=== PATIENT | male | born 1955 | race Caucasian/White ===

== ENCOUNTER 2018-09-12 08:26 | Emergency (ER) | payer OTHER, SELFPAY ==
[2018-09-12 08:25] VITALS: BP 155/83; PULSE 76; RESP 20; TEMP 37.1; O2SAT 99
--- NOTE | 2018-09-12 08:36 | DI.RAD.S_ITS ---
PROCEDURE: XR CHEST 2V INDICATIONS: fall left sided pain TECHNIQUE: 2 views of the chest were acquired. COMPARISON: None. FINDINGS: Surgical changes and devices: Right shoulder arthroplasty. Lungs and pleura: Lungs are clear. No pleural effusions or pneumothorax. Mediastinum: Mediastinal contours are normal. Heart size is normal. Bones and chest wall: No suspicious bony abnormalities. Soft tissues appear unremarkable. IMPRESSION: No acute process. Dictated by: Andree Bruno M.D. on 09/12/2018 at 7:57 Approved by: Andree Bruno M.D. on 09/12/2018 at 7:58
--- NOTE | 2018-09-12 08:36 | DI.CT.S_ITS ---
PROCEDURE: CT CERVICAL SPINE WO CON INDICATIONS: fall backwards TECHNIQUE: Noncontrast 3 mm thick sections acquired from the skull base to the T4 level. Sagittal and coronal reformats were then constructed. For radiation dose reduction, the following was used: automated exposure control, adjustment of mA and/or kV according to patient size. COMPARISON: None. FINDINGS: Image quality: Excellent. Bones: No fractures or dislocations. Visualized superior ribs are intact. Multilevel degenerative disc and facet disease. Soft tissues: Prevertebral soft tissues are normal in thickness. No paravertebral hematomas. No apical pneumothoraces. IMPRESSION: Multilevel degenerative disc and facet disease. No acute fracture. No osseous lesion. If symptoms or clinical suspicion for pathology persists, repeat plain films, or advanced imaging (CT, bone scan, or MRI) may be helpful for further assessment. Dictated by: Andree Bruno M.D. on 09/12/2018 at 7:58 Approved by: Andree Bruno M.D. on 09/12/2018 at 8:00
--- NOTE | 2018-09-12 08:48 | ED_ITS ---
HPI - Fall General Chief Complaint: Fall Stated Complaint: GLF,hit head. C/O left shoulder and back pain Time Seen by Provider: 09/12/18 08:35 Source: patient and EMS Mode of arrival: EMS Limitations: no limitations History of Present Illness HPI Narrative: Patient is a 63-year-old male who presents after ground level fall. He was knocked over twice by large [place] presenting part this morning. He says he fell 1st onto his bottom and then laid backwards. Hitting his back and head. No loss of consciousness she is not on any blood thinners. He was able to get up right away not night again. Again no loss of consciousness. He came in with C-collar because he is having some neck pain. He has no numbness or tingling in his arms no weakness. No lower leg extremity weakness. MD complaint: fall Onset (ago): minute(s) Fall from: standing Fall witnessed: yes, by bystander Place fall occurred: other (Part) Loss of consciousness: none Related Data Allergies Allergy/AdvReac Type Severity Reaction Status Date / Time clozapine Allergy Verified 09/12/18 08:42 erythromycin base Allergy Verified 09/12/18 08:42 gabapentin Allergy Verified 09/12/18 08:42 Penicillins Allergy Verified 09/12/18 08:42 pregabalin [From Lyrica] Allergy Verified 09/12/18 08:42 Review of Systems Review of Systems ROS Unobtainable: All systems reviewed & are unremarkable except as noted in HPI and below Constitutional Denies chills, Denies fever(s), Denies lethargy and Denies weakness Eyes Denies change in vision, Denies eye discharge, Denies irritation and Denies loss of vision Cardiovascular Denies syncope Gastrointestinal Gastrointestinal: Denies abdominal pain, Denies change in bowel habits, Denies diarrhea, Denies nausea and Denies vomiting Genitourinary Denies hematuria, Denies flank pain, Denies urinary incontinence and Denies urinary urgency Musculoskeletal Reports as per HPI Integumentary/Breasts Denies pruritus, Denies erythema, Denies rash and Denies wounds Neurologic Denies syncope, Denies loss of vision and Denies weakness Exam Initial Vital Signs Initial Vital Signs: Vital Signs Temperature 98.7 F 09/12/18 08:25 Pulse Rate 76 09/12/18 08:25 Respiratory Rate 20 09/12/18 08:25 Blood Pressure 155/83 H 09/12/18 08:25 Pulse Oximetry 99 09/12/18 08:25 GENERAL: Well-appearing, well-nourished and in no acute distress. HEENT: Head atraumatic no abrasions no crepitations no depression,EOMI, pupils reactive, face symmetric NECK: C-collar placed by EMS. He is actually tender at C7-T1 CARDIOVASCULAR: Regular rate and rhythm without murmurs, rubs or gallops. RESPIRATORY: Breath sounds equal bilaterally, no wheezes rales or rhonchi. ABDOMEN: Soft, nontender. Normoactive bowel sounds all 4 quadrants. No guarding or rebound. EXTREMITIES: Normal range of motion, no clubbing or edema. Neurovascularly intact Able to lift lower legs without any difficulty sensation in lower extremities intact BACK: No vertebral tenderness in lumbar area although he does have some paraspinal tenderness. Able to lift NEUROLOGICAL: Alert and oriented x4.Normal gait and speech. Cranial nerves II through XII grossly intact. SKIN: Warm, dry, no laceration, no petechiae, no rashes or lesions. [facility] Medical History Bipolar 1 disorder (Acute) PTSD (post-traumatic stress disorder) (Acute) Social History Smoking Status: Never smoker Social History Smoking Status: Never smoker Course Orders Ordered: ED Orders 09/12/18 08:36 CT cervical spine wo con Stat XR chest 2V Stat Discontinued Medications Ibuprofen (Advil) 800 mg PO NOW ONE Stop: 09/12/18 08:37 Last Admin: 09/12/18 09:04 Dose: 800 mg Vital Signs - 8 hr 09/12/18 08:25 Temperature 98.7 F Pulse Rate 76 Respiratory Rate 20 Blood Pressure 155/83 H Pulse Oximetry 99 MDM - Fall MDM Narrative Medical decision making narrative: C-collar removed by myself. Patient has no focal deficits continues to improve. He now says that he did have a minor headache and was a little dizzy however his headache seems to be improving. No persistent nausea no sign of head abrasion or trauma. At this time I do not think he needs any sort of head imaging. He is not on any anti-platelet or anticoagulation medication. He moves his left shoulder easily and freely nonpainful. Chest x-ray was negative Discharge Plan Departure Patient Disposition: Home Clinical Impression: Cervical strain, Closed head injury Instructions: Whiplash, DI for Closed Head Injury Activity Restrictions/Additional Instructions: *You have been diagnosed with cervical strain *What to do: Possible closed head injury. Monitor for head injury worsening signs and symptoms which include seizure activity persistent vomiting, severe headache weakness if any of the symptoms should arise please return to the closest emergency department soon as possible *Continue to take medications as directed Ibuprofen 600 mg every 6-8 hours if needed for pain *Follow up with your primary care provider in 2-3 days *Return to ER if you should have worsening headache, persistent vomiting or any new, worsening or concerning symptoms
[2018-09-12] MEDS: IBUPROFEN 400 MG TABLET 800 MG PO (09:04)
[2018-09-12 10:02] VITALS: BP 145/86; PULSE 64; O2SAT 98
== END 2018-09-12 10:03 | disposition home or self-care (01) ==
PROVIDERS: Emergency Provider Emergency Medicine
DX: S16.1XXA Strain of muscle, fascia and tendon at neck level, initial encounter (principal); S09.90XA Unspecified injury of head, initial encounter; W54.1XXA Struck by dog, initial encounter; W18.39XA Other fall on same level, initial encounter
CPT/HCPCS: 71046; 72125; 99282; 99284